=== PATIENT | female | born 1940 | race Caucasian/White ===

== ENCOUNTER 2016-08-22 17:14 | Emergency (ER) | payer SELFPAY ==
[~2016-08-22] VITALS: Ht 162.6 cm; Wt 74.0 kg
[~2016-08-22 17:14] MED LIST: ACET500C5 PO; ALBU18HF INHALATION; AZIT250T94 PO
[2016-08-22 17:17] VITALS: Ht 162.6 cm; Wt 74.0 kg
[2016-08-23] MEDS ORDERED: LORA10TA3 PO (11:58)
[2016-08-23] MEDS ORDERED: SIMV40TA2 PO (11:59)
[2016-08-23] MEDS ORDERED: ASPI-664 PO (11:59)
[2016-08-23] MEDS ORDERED: OMEP20CA16 PO (11:59)
[2016-08-23] MEDS ORDERED: LOSA50TA6 PO (11:59)
[2016-08-23] MEDS ORDERED: HYDR-906 PO (12:00)
[2016-08-23] MEDS ORDERED: ONDA4TAB14 PO (14:01)
[2016-08-23] MEDS ORDERED: HYDR-902 PO (14:01)
== END 2016-08-22 21:07 | disposition left against medical advice (07) ==
LOC: E/R 17:14
DX: Z53.21 Procedure and treatment not carried out due to patient leaving prior to being seen by health care provider (principal)

== ENCOUNTER 2016-11-23 07:09 | Day surgery (SDC) | payer OTHER ==
[~2016-11-23] VITALS: Ht 152.4 cm; Wt 72.8 kg
[~2016-11-23 07:09] MED LIST changes: +ASPI-664 PO; +HYDR-902 PO; +HYDR-906 PO; +LORA10TA3 PO; +LOSA50TA6 PO; +OMEP20CA16 PO; +ONDA4TAB14 PO; +SIMV40TA2 PO
[2016-11-23 07:53] VITALS: Ht 152.4 cm; Wt 72.8 kg
[2016-11-23] MEDS ORDERED: INHALER (08:13)
[2016-11-23] MEDS ORDERED: IBUP200C PO (08:13)
[2016-11-23 08:54] VITALS: BP 141/68; PULSE 57; RESP 22
[2016-11-23] MEDS ORDERED: LIDOCAINE 2% (SDV) 5 ML INJ ONE (09:08)
[2016-11-23] MEDS ORDERED: PROPOFOL 40 ML ONE (09:08)
--- NOTE | 2016-11-23 09:47 | OPPN ---
Date/Time of Note Date/Time of Note DATE: 11/23/16 TIME: 09:45 Operative Report Preoperative Diagnosis Abdominal pain Change in bowel habit Screening colonoscopy Postoperative Diagnosis Gastritis 3 small colon polyps were removed Internal hemorrhoids Operation/Procedure Performed Esophagogastroduodenoscopy and biopsy Colonoscopy and biopsy Provider: RANDALL CEVALLOS MD Anesthesia Type: MAC Estimated blood loss: none Transfusion Required: no Specimens Gastric mucosal biopsy Biopsy of the colon polyps Grafts/Implants: none Complications: no RANDALL CEVALLOS MD Nov 23, 2016 09:46
[2016-11-23 10:00] VITALS: BP 165/72; PULSE 56; RESP 14
--- NOTE | 2016-11-23 10:16 | GILP ---
DATE OF PROCEDURE: PROCEDURE PERFORMED: 1. Esophagogastroduodenoscopy and biopsy. 2. Colonoscopy and biopsy. SURGEON: Jessica Cameron MD PREOPERATIVE DIAGNOSES: 1. Abdominal pain. 2. Change in the bowel habits. 3. Screening colonoscopy. POSTOPERATIVE DIAGNOSES: 1. Gastritis with erosions. 2. Gastric mucosal biopsies were taken for Helicobacter pylori test. 3. Colonoscopy all the way to the cecum. 4. Three small colon polyps were removed using the biopsy forceps. 5. Internal hemorrhoids. INDICATION: The patient is a 76-year-old female patient who had upper abdominal pain, not responding to therapy. The patient also noticed change in the bowel habits. She never had a screening colonoscopy. The patient was scheduled for endoscopy and colonoscopy for further evaluation. The procedures and possible complications were well-explained to the patient. The patient understood and consented to the procedures. DESCRIPTION OF PROCEDURE: Under influence of anesthesia, the gastroscope was carefully introduced into the esophagus and under direct vision it was advanced into the stomach and through the pylorus into the duodenal bulb and descending duodenum. Findings, esophagus, mucosa was normal. Stomach, the patient had gastritis with erosions. Gastric mucosal biopsies were taken for Helicobacter pylori test. Duodenum was normal. The colonoscope was carefully introduced in the rectum. Under direct vision it was advanced all the way to the cecum. Findings, the patient had 2 small colon polyps, and they were removed using the biopsy forceps. She was noted to have internal hemorrhoids. She tolerated the procedures very well. There is no complications from the procedures. At the end of procedure, she was awake with stable vital signs and she was discharged home in care of her family. IMPRESSION: 1. Gastritis with erosions. 2. Gastric mucosal biopsies were taken for Helicobacter pylori test. 3. Colonoscopy all the way to the cecum. 4. Three small colon polyps were removed using the biopsy forceps. 5. Internal hemorrhoids. PLAN: 1. Omeprazole 40 mg p.o. q.a.m. 2. Await histopathology reports. 3. Next screening colonoscopy in 5 years. Dictated By: MD KERWIN Long/moo/ralph /Document#: [id number]
--- NOTE | 2016-11-23 10:28 | GILP ---
DATE OF PROCEDURE: 11/23/2016 PREOPERATIVE DIAGNOSES: 1. Abdominal pain. 2. Change in the bowel habits. 3. Screening colonoscopy. POSTOPERATIVE DIAGNOSES: 1. Gastritis with erosions. 2. Gastric mucosal biopsies were taken for Helicobacter pylori test. 3. Colonoscopy all the way to the cecum. 4. Small colon polyps were removed using the biopsy forceps. 5. Internal hemorrhoids. PROCEDURE PERFORMED: 1. Esophagogastroduodenoscopy and biopsy. 2. Colonoscopy and biopsy. SURGEON: Jessica Cameron MD. INDICATION: The patient is a [id number] female patient who had upper abdominal pain not responding to therapy. She also had a change in the bowel habit and she needed a screening colonoscopy. The procedures and possible complications were well explained to the patient. The patient understood and consented to the procedure. DESCRIPTION OF PROCEDURE: Under influence of anesthesia, the gastroscope was carefully introduced into the esophagus. Under direct vision it was advanced to the stomach into the pylorus, into the duodenal bulb, and descending duodenum. Findings esophagus: The patient had normal esophageal mucosa. Stomach: Patient had gastritis with erosions. Gastric mucosal biopsies were taken for Helicobacter pylori test. Duodenum was normal. The colonoscope was carefully introduced in the rectum. Under direct vision it was advanced all the way to the cecum. Findings: The patient had 3 small colon polyps, and they were removed using the biopsy forceps. She had internal hemorrhoids. She tolerated the procedures very well. There was no complication from the procedures. At the end of procedure she was awake with stable vital signs and she was discharged home in the care of her family. IMPRESSION: Please see postop diagnoses. PLAN: 1. Omeprazole 40 mg p.o. q.a.m. 2. Await histopathology reports. 3. Next screening colonoscopy in 5 years. Dictated By: MD KERWIN Long/moo/jose /Document#: [id number]
== END 2016-11-23 12:04 | disposition home or self-care (01) ==
LOC: GIL 07:09
PROVIDERS: ATTEND Internal Medicine Gastroenterology
DX: Z12.11 Encounter for screening for malignant neoplasm of colon (principal); D12.7 Benign neoplasm of rectosigmoid junction; K29.60 Other gastritis without bleeding; K64.8 Other hemorrhoids; I10 Essential (primary) hypertension; E78.5 Hyperlipidemia, unspecified; J45.909 Unspecified asthma, uncomplicated
CPT/HCPCS: 43239; 45378; 87081; 88305; Z7610

== ENCOUNTER 2017-09-27 11:20 | Observation (INO) | END 2017-09-29 20:25 | disposition home or self-care (01) ==

== ENCOUNTER 2018-02-28 11:00 | Emergency (ER) | END 2018-02-28 12:52 | disposition home or self-care (01) ==